=== PATIENT | female | born 1950 | race Caucasian/White ===

== ENCOUNTER → 2025-02-19 | Outpatient (CLI) | payer MEDICARE, SELFPAY ==
--- NOTE | 2025-02-19 14:05 | XR_ITS ---
Examination: Bilateral knees single view AP oblique lateral right knee 3 views TECHNIQUE: Bilateral AP knees standing single view Standing AP lateral oblique right knee 3 views total 4 views Exam date and time: February 19, 2025 1421 hours INDICATIONS: Knee pain years. FINDINGS: Prominent osteopenia Moderate narrowing medial joint space right knee Moderate narrowing lateral joint space left knee Moderate right knee effusion Moderate osteoarthritis right patellofemoral joint IMPRESSION: Moderate narrowing medial joint space right knee Moderate osteoarthritis right patellofemoral joint Moderate narrowing lateral joint space left knee
== END | disposition home or self-care (01) ==
PROVIDERS: PCP Family Medicine; Referring Provider Orthopaedic Surgery; Visit Provider Orthopaedic Surgery
DX: M17.11 Unilateral primary osteoarthritis, right knee (principal); M25.861 Other specified joint disorders, right knee
CPT/HCPCS: 73564

== ENCOUNTER → 2025-02-25 | Outpatient (CLI) | payer MEDICARE, BC, SELFPAY ==
--- NOTE | 2025-02-25 12:30 | XR_ITS ---
Examination: Lumbar spine 3 views Technique one AP lateral coned lateral lower lumbar spine 3 views Exam date and time: February 25, 2025 1309 hours INDICATIONS: Low back pain 5 years. FINDINGS: Comparison May 29, 2013 Moderate osteopenia Intact pedicles No lumbar fracture Again noted advanced disc narrowing L4-L5 with transitional L5 vertebral body IMPRESSION: Advanced degenerative disc disease L4-L5
== END | disposition home or self-care (01) ==
PROVIDERS: PCP Family Medicine; Referring Provider Orthopaedic Surgery; Visit Provider Orthopaedic Surgery
DX: M51.369 Other intervertebral disc degeneration, lumbar region without mention of lumbar back pain or lower extremity pain (principal)
CPT/HCPCS: 72100

== ENCOUNTER → 2025-03-28 | Outpatient (CLI) | payer MEDICARE, BC, SELFPAY ==
--- NOTE | 2025-03-28 10:30 | XR_ITS ---
Exam: MRI knee without contrast, right Date and time of exam: March 28, 2025 1034 hours INDICATIONS: Medial right-sided knee pain weakness joint clicking stiffness 2 months Technique: Multiple axial, coronal, and sagittal sections on the knee have been obtained. T2-Weighted sagittal, fat-suppressed images, TR 3,500, TE 62, T2 weighted coronal fat-saturated images, TR 3,500, TE 62 Proton density sagittal sections, TR 1800, TE 31. T-1 weighted coronal images, TR 524, TE 13.0 Findings: Medial meniscus anterior horn truncation inner margin. Medial meniscus, body truncation inner margin with horizontal linear tears. Posterior horn medial meniscus truncation inner margin, complex tears including large horizontal linear tear communicating inner margin. Lateral meniscus anterior horn horizontal linear tears Lateral meniscus, body is horizontal linear tear communicating inner margin Posterior horn lateral meniscus horizontal linear tear communicating inner margin Anterior cruciate ligament high-grade sprain Posterior cruciate ligament appears intact. Knee effusion is moderate. Quadriceps and patellar tendons appear intact. There is no evidence of tendinosis. Inflammatory change or fracture of Hoffa's fat pad is not seen. Medial patellar facet demonstrates severe thinning. Lateral patellar facet cartilage demonstrates severe thinning. Trochlear cartilage demonstrates severe thinning. Marrow signal mildly increased medial femoral condyle. Medial collateral ligament appears intact. No meniscocapsular separation is seen. Illiotibial band and fibular collateral ligament are intact. Biceps femoris tendons appear intact. Medial femoral condylar articular cartilage demonstrates severe thinning. Lateral femoral condylar articular cartilage demonstratessevere thinning. Tibial plateau cartilage demonstrates severe thinning. Impression: Extensive medial lateral meniscus tears High-grade sprain anterior cruciate ligament
== END | disposition home or self-care (01) ==
PROVIDERS: PCP Family Medicine; Referring Provider Orthopaedic Surgery; Visit Provider Orthopaedic Surgery
DX: S83.241A Other tear of medial meniscus, current injury, right knee, initial encounter (principal); S83.281A Other tear of lateral meniscus, current injury, right knee, initial encounter; S83.511A Sprain of anterior cruciate ligament of right knee, initial encounter; X58.XXXA Exposure to other specified factors, initial encounter
CPT/HCPCS: 73721

== ENCOUNTER → 2025-07-08 | Outpatient (CLI) | payer MEDICARE, BC, SELFPAY ==
--- NOTE | 2025-07-08 14:19 | XR_ITS ---
Examination: Foot, left, 3 views Technique: AP, oblique, lateral views foot, 3 views Date and time of exam: July 08, 2025 1428 hours INDICATIONS: Left foot pain beginning one year ago. FINDINGS: Status post fusions first second and third tarsometatarsal joints Satisfactory alignment Severe osteopenia No acute fracture On the lateral view fusion talocalcaneal with satisfactory alignment IMPRESSION: Status post foot surgery with satisfactory alignment as above No acute fracture
--- NOTE | 2025-07-08 14:19 | XR_ITS ---
EXAMINATION: Ankle, left 3 views . Technique: Ankle AP, oblique, lateral 3 views Date and time of exam: July 08, 2025 1424 hours INDICATIONS: Ankle surgery one year ago with swelling and pain FINDINGS: Status post fusion talocalcaneal joint although the joint, subtalar is still visible Also partially visualized effusions first second and third tarsometatarsal joints No acute fracture IMPRESSION: Fusions as above with satisfactory alignment, the subtalar joint is still visible
== END | disposition home or self-care (01) ==
LOC: SDIM 14:03
PROVIDERS: PCP Family Medicine; Referring Provider Orthopaedic Surgery; Visit Provider Orthopaedic Surgery
DX: M25.572 Pain in left ankle and joints of left foot (principal); Z96.698 Presence of other orthopedic joint implants
CPT/HCPCS: 73610; 73630

== ENCOUNTER → 2025-09-11 | Outpatient (CLI) | payer MEDICARE, BC, SELFPAY ==
[2025-09-11 08:07] LABS: Collection Type, Urine Clean Catch
[2025-09-11 08:37] LABS: Basophils # (Auto) 0.0 Thou/mm3 (0.0-0.2); Basophils % (Auto) 1 % (0-2.5); Eosinophils # (Auto) 0.3 Thou/mm3 (0.0-0.5); Eosinophils % (Auto) 7 % (0-10); Hematocrit 41.4 % (36.0-46.0); Hemoglobin 13.4 g/dL (12.0-16.0); Immature Granulocytes Auto 0.00 Thou/mm3 (0.00-0.00); Lymphocytes # (Auto) 0.8 Thou/mm3 (1.0-4.8); Lymphocytes % (Auto) 20 % (10-50); Mean Corpuscular HGB Conc 32.4 g/dl (31.0-37.0); Mean Corpuscular Hemoglobin 28.8 pg (25.0-35.0); Mean Corpuscular Volume 89 fL (80-100); Monocytes # (Auto) 0.5 Thou/mm3 (0.0-0.8); Monocytes % (Auto) 11 % (0-12); Neutrophils # (Auto) 2.6 Thou/mm3 (1.8-7.7); Neutrophils % (Auto) 61 % (37-80); Nucleated Red Blood Cell # 0.00 Thou/mm3 (0.00-0.00); Nucleated Red Blood Cell % 0 /100 WBC (0); Platelet Count 271 Thou/mm3 (140-440); RDW Standard Deviation 44.8 fL (36.4-46.3); Red Blood Count 4.66 Miln/mm3 (4.00-5.20); White Blood Count 4.2 Thou/mm3 (3.6-11.0)
[2025-09-11 08:51] LABS: Bacteria,Urine Rare; Bilirubin,Urine Negative (Negative); Blood,Urine Negative (Negative); Color,Urine Yellow (Lt Yel-Yel); Glucose, Urine Negative (Negative); Ketones,Urine Negative (Negative); Leukocyte Esterase,Urine Positive (Negative); Nitrite,Urine Negative (Negative); PH,Urine 6.0 (5.0-7.0); Protein,Urine Trace (Neg - Trace); RBC,Urine 13 /hpf (0-3); Specific Gravity,Urine 1.017 (1.001-1.035); Squamous Epithelial Cell,Urine 14 /hpf (0-5); Urobilinogen,Urine Negative mg/dL (0.0-1.0); WBC,Urine 80 /hpf (0-5)
[2025-09-11 08:53] LABS: Clarity,Urine Hazy (Clear/Hazy)
[2025-09-11 09:04] LABS: Alanine Aminotransferase 9 U/L (10-49); Albumin, Serum 4.2 gm/dL (3.4-4.8); Albumin/Globulin Ratio 1.9 (1.2-2.2); Alkaline Phosphatase 98 U/L (46-116); Anion Gap 10 (7-16); Aspartate Amino Transferase 15 U/L (0-34); BUN/Creatinine Ratio 20 Ratio (12-20); Bilirubin,Total 0.6 mg/dL (0.3-1.2); Blood Urea Nitrogen 12 mg/dL (9-23); Calcium 9.3 mg/dL (8.3-10.6); Calcium (Corrected) 9.3 mg/dL (8.5-10.1); Carbon Dioxide 29.2 mMol/L (20.0-31.0); Cardiac Risk Estimate 3.6 RATIO (3.7-5.6); Chloride 105 mMol/L (98-107); Cholesterol 256 mg/dL (132-200); Creatinine (Component) 0.6 mg/dL (0.6-1.3); Globulin 2.2 gm/dL (2.3-3.5); Glucose 100 mg/dL (74-106); HDL Cholesterol 72 mg/dL (40-60); LDL Cholesterol,Calculated 161 mg/dL (0-130); Osmolality,Calculated 286 (275-295); Potassium 4.1 mMol/L (3.4-5.1); Sodium 144 mMol/L (136-145); Thyroid Stimulating Hormone 1.73 uIU/mL (0.55-4.78); Total Protein 6.4 gm/dL (5.7-8.2); Triglycerides 113 mg/dL (30-150); eGFR > 60 See Note
== END | disposition home or self-care (01) ==
LOC: COPL 06:56
PROVIDERS: PCP Family Medicine; Referring Provider Family Medicine; Visit Provider Family Medicine
DX: I10 Essential (primary) hypertension (principal)
CPT/HCPCS: 36415; 80053; 80061; 81001; 84443; 85025

== ENCOUNTER 2025-10-02 09:43 | Outpatient (AMB) | payer MEDICARE, BC, SELFPAY ==
--- NOTE | 2025-10-02 10:04 | ORTHONT_ITS ---
Vital signs 10/02/25 10:05 Height 1.52 m Height Method Stated Weight 73.142 kg Weight Measurement Method Standing Scale BMI 31.4 BP 121/79 Blood Pressure Source Automatic Cuff Blood Pressure Location Left Upper Arm Position Sitting Respiration 19 Pulse 89 Pulse Source Monitor Temp 97.9 F Temp Source Temporal Artery Scan Pulse Oximetry (%) 93 L Oxygen Delivery Method Room Air Med/Allergies Allergies & Medications Allergies paramethadione Allergy (Unknown, Verified 10/02/25 10:06) RASH Medication Reconciliation losartan 25 mg tablet 25 mg PO QDAY 07/10/19 [History Confirmed 10/02/25] meloxicam 7.5 mg tablet 7.5 mg PO QDAY 07/10/19 [History Confirmed 10/02/25] pantoprazole 40 mg tablet,delayed release 40 mg PO QDAY 07/10/19 [History Confirmed 10/02/25] simvastatin 40 mg tablet 40 mg PO QPM 07/10/19 [History Confirmed 10/02/25] tramadol 50 mg tablet 50 mg PO Q6H 07/10/19 [History Confirmed 10/02/25] Exam Exam Breathing is nonlabored. Patient has a normal mood and affect. Bilateral extremities were evaluated and demonstrates sensation intact to light touch. Palpable pedal pulses are present. No significant edema is present. Bilateral hips were examined. The patient has no pain with log roll of the hips. Internal rotation to 30 degrees and external rotation to 30 degrees is painless. Negative FADIR. Left knee was examined today. The left knee is in reasonable alignment. Range of motion from 0-120 degrees. Knee is stable to varus and valgus as well as AP translation with <5mm. Patient has a negative McMurrays. There is no pain with patellofemoral compression and no crepitus noted. The knee is nontender to palpation. The right knee was also examined. The right knee is in varus alignment. Range of motion from 0-115 degrees. Knee is stable to varus and valgus as well as AP translation with <5mm. Patient has a negative McMurrays. There is no pain with patellofemoral compression and no crepitus noted. The knee is tender to palpation medially. X-rays of the right knee demonstrate complete joint space narrowing of the medial compartment and right knee arthritis Assessment and Plan Problem List (1) Arthritis of knee, right: Status: Acute Plan: ASSESSMENT AND PLAN 1. Right knee pain: Experiencing right knee pain for at least 2 months, with minimal improvement from previous injections. Cortisone and gel injections have been tried, with cortisone providing better relief. Currently taking tramadol and meloxicam for pain management. A comprehensive discussion was held regarding the potential benefits and risks associated with knee replacement surgery. If you were to get surgery, we discussed that she would need to wait at least 3 months because of the cortisone injection that she wants today The nature and purpose of the total knee replacement, alternative method(s) of treatment, the material risks involved, and the possibility of complications were fully explained to the patient. The patient does NOT have any of the following contraindications to TKA: - Active infection of the knee joint, OR - Active systemic bacteremia, OR - Active skin infection or open wound at surgical site, OR - Neuropathic arthritis, OR - Severe, rapidly progressive neurological disease, OR - Severe medical condition that makes risks of surgery outweigh the potential benefit The patient was told the most common risks and complications associated with a total knee replacement include, but are not limited to: blood clots in the leg, fatal pulmonary embolism, dislocation of the prosthesis, intraoperative and postoperative fractures of the femur or tibia, infection, failure of the prosthesis or grafting materials, complications from anesthesia, reactions to blood transfusions, postoperative leg length inequality, instability of the knee replacement, nerve damage or injury, vascular injury, delayed wound healing, infection, other injury or even . In addition, there are risks associated with anesthesia given during this operation. Also, the patient was told that after undergoing a total knee replacement there may still be persistent pain or disability. The patient was informed that the success of this operation in part depends upon the mechanical devices which are going to be implanted and that these devices can fail or malfunction, and may need to be repaired or replaced and there are no guarantees as to the longevity of this device or its parts and that it or its parts could fail prematurely. The patient was also notified that during the course of surgery, there may be a need to use bone graft from donors, and that any bone graft used will be carefully screened for communicable diseases, including AIDS, hepatitis, Reji-Creutzfeldt, or other diseases, but despite the screening procedures, there is a small chance that they could contract one of these diseases. Finally, the patient was asked to follow completely and fully with all advice and recommended treatments, and that recovery and ultimate outcome are affected by their compliance with recommended treatment. We discussed the risks, benefits and treatment alternatives, and the patient is interested in proceeding with surgery. We will try to set this up as expeditiously as possible. A cortisone injection will be administered today. An information packet detailing the surgical procedure was provided for consideration. A medical clearance form was also given, which needs to be signed off by primary care physician,should she decide to proceed with the surgery. Recommend knee cortisone injection as patient would like to proceed with conserv ative treatment at this time. The risks and benefits of the procedure were reviewed with the patient and patient gave verbal consent to continue with the procedure. Procedure: performed by Dr. Bloom Using sterile technique the Right knee was thoroughly prepped with alcohol, and approximately 1 cc of Depo-Medrol 80mg/mL and 4 cc of 0.2% ropivacaine was injected without resistance into the medial tibial femoral joint space. The patient tolerated the procedure. Advanced Care Planning Discussion Advance care planning discussed with:: patient Office Procedures GNS Level of Care Nursing/Assessment Patient Status: Initial/New Patient Nursing Assessment/Reassesment: Medication Reconciliation, Update PMH in EMR and Vital Signs Coordination of Care: Complex Care and Chronic Disease 1-5, Education Complex Pt/Fam, Consent,records obtained, informed consent, 1 Ins Authorization, Lab and Imaging orders, Results/Orders obtained and Staff clarify orders New Patient Charge New Patient Point Assignment: 1124 New Patient Point Charge: CASING RUNNER Level 4 (8616-0520) Surgical Proc/IM SQ injection Minor Surgical Procedure: Yes (KNEE INJECTION) Medication Given Medication Given Medication Given: Yes Documented Dose Given: 1 Route: Infiitration Medication Given Medication Given Medication Given: Yes Documented Dose Given: 4 Route: Infiitration Office Meds methylprednisolone acetate 80 mg/mL suspension for injection Performing Provider: Gerson Bloom MD Performing Location: [facility] Administered by: Gerson Bloom MD on 10/02/25 11:36 Dose Route Admin Location Dispensed Lot Number Expiration Date Pack age [facility] As[facility] Specialist 80 mg intra-articular 1 mL [id number] 06/25/27 [address]-4 [id number] [employer] ropivacaine (PF) 2 mg/mL (0.2 %) injection solution Performing Provider: Gerson Bloom MD Performing Location: [facility] Administered by: Gerson Bloom MD on 10/02/25 11:36 Dose Route Admin Location Dispensed Lot Number Expiration Date Pack age [facility] Asw Specialist 20 mL Infiltration 20 mL [id number] 12/26/27 48630-769-24 [id number] [facility] Intake Visit Data Collection New Patient or Established: New Patient (never been to [facility]) Reason for Visit:: RIGHT KNEE OA Seen by Clinical Staff ONLY (RN/MA): No PCP or OBGYN visit in last 3 months: Yes Hx Now: No Do You Feel Safe at Home: Yes Authorities Contacted: N/A Questionairres Past Medical History Past Medical History Have you ever been diagnosed with any of the following: Cardiology Problems Atherosclerotic Heart Disease: Yes Hypercholesterolemia: Yes Congestive Heart Failure: No Hypertension: Yes Respiratory Problems Chronic Obstructive Pulmonary Disease (COPD): No Smoking: No Smoking Cessation Counseling: No Smoking Exposure: No Genital/Urinary Problems Renal Disease: No Reproductive Problems Pelvic Inflammatory Disease: No Musculoskeletal Problems Arthritis: Yes Osteoporosis: Yes Endocrine Problems Diabetes Mellitus Type 1: No Diabetes Mellitus Type 2: No Other Problems Down Syndrome: No Developmental Delay: No Falls: No Anesthesia Reactions: No Chicken Pox: Yes Cancer: No Subjective Visit Visit for: new patient and knee (RIGHT) Immunization / Flu Flu Vaccine in the Last 12 Months: Yes Flu Vaccine Exclusion Criteria: Already Received History of Present Illness Chief complaint: RIGHT KNEE OA Date of injury / onset of symptoms: 1 YEAR HISTORY OF PRESENT ILLNESS I, Gerson Bloom, have obtained verbal consent from the patient, to be recorded during this encounter which may include, but not limited to, medical history, examination, treatment plans, and relevant health information.? Patient was informed that recording will be read and reviewed by myself before inclusion in the medical chart. The patient is a pleasant 75-year-old female who presents with right knee pain. She was referred to our clinic by Dr. Garcia due to persistent right knee pain that has been troubling her for approximately a year, with the severity e scalating over the past month and a half. Her last injection was administered about a month ago, but it did not provide significant relief. She was informed that the gel injection could be repeated every 6 months, and if the pain persists before this period, a knee replacement surgery would be considered. Her overall health status is satisfactory. She is under the care of a real estate agency licensee, Dr. Figueroa, whom she does not consult frequently. She has received two injections, one of which was covered by her insurance. Interestingly, she reports that the less expensive injection provided more relief than the costlier one. She has also tried tramadol and meloxicam for pain management. Personal History Occupation: [employer] 40 YEARS Pain Pain level (0-10): 8 Pain duration: ALL DAY Pain location: inside (medial), outside (lateral), anterior and posterior Pain quality: sharp, dull, aching, burning and shocking Pain timing: night, increases with activity and stairs Associated signs & symptoms: numbness, weakness and stiffness Ambulatory data Ambulatory device: none Treatments Number of previous injections: 2 Improvement with previous injections: No Number of Physical Therapy sessions: 0 Improvement with PT: No Improvement with NSAIDS: no Review of Systems Review of Systems: All systems negative unless otherwise noted in HPI.
[2025-10-02 10:05] VITALS: BP 121/79; PULSE 89; RESP 19; TEMP 36.6; O2SAT 93; BMI 31.4
== END 2025-10-02 10:38 | disposition home or self-care (01) ==
LOC: HODSRG 09:43
PROVIDERS: PCP Orthopaedic Surgery; Referring Provider Orthopaedic Surgery; Supervising Provider Orthopaedic Surgery Adult Reconstructive Orthopaedic Surgery; Visit Provider Orthopaedic Surgery Adult Reconstructive Orthopaedic Surgery
DX: M25.561 Pain in right knee (principal); M17.11 Unilateral primary osteoarthritis, right knee; I10 Essential (primary) hypertension
CPT/HCPCS: 20610; 99204; J1010; J2795; G0463